=== PATIENT | female | born 1950 | race African-American/Black ===

== ENCOUNTER → 2017-09-10 | Outpatient (CLI) | payer MEDICARE, OTHER ==
--- NOTE | 2017-09-10 10:46 | US ---
EXAMINATION TYPE: US gallbladder DATE OF EXAM: 09/10/2017 COMPARISON: NONE CLINICAL HISTORY: R19.8 CHANGE IN BOWEL MOVEMENTS. RUQ pain EXAM MEASUREMENTS: Liver Length: 10.1 cm Gallbladder Wall: 0.2 cm CBD: 0.3 cm Right Kidney: 10.2 x 3.7 x 5.5 cm Pancreas: visualized portions wnl Liver: wnl Gallbladder: No stones seen Evidence for sonographic Edmondson's sign: Yes CBD: wnl Right Kidney: No hydronephrosis or masses seen IMPRESSION: 1. Normal right upper quadrant abdomen ultrasound
== END | disposition home or self-care (01) ==
LOC: RADUSWWP 09:48
PROVIDERS: ATTEND Family Medicine
DX: R19.8 Other specified symptoms and signs involving the digestive system and abdomen (principal)
CPT/HCPCS: 76705

== ENCOUNTER → 2017-11-18 | Outpatient (CLI) | payer MEDICARE, OTHER ==
--- NOTE | 2017-11-19 11:23 | MM ---
Reason for exam: screening (asymptomatic). Last mammogram was performed 2 years and 5 months ago. History: Patient is postmenopausal. Family history of breast cancer in maternal aunt. Took estrogen for 6 months beginning at age 51. Physical Findings: A clinical breast exam by your physician is recommended on an annual basis and results should be correlated with mammographic findings. MG 3D Screening Mammo W/Cad Bilateral CC and MLO view(s) were taken. Technologist: RT Henri (R)(M) Prior study comparison: June 18, 2015, bilateral MG 3d diag mammo w/cad [facility]. March 29, 2014, bilateral MG diagnostic mammo w CAD [facility]. The breast tissue is heterogeneously dense. This may lower the sensitivity of mammography. There is a low density left upper central mass at middle depth stable back to 2013. No suspicious abnormality. No significant changes when compared with prior studies. ASSESSMENT: Benign, BI-RAD 2 RECOMMENDATION: Routine screening mammogram of both breasts in 1 year.
== END | disposition home or self-care (01) ==
LOC: RADMAMWWP 13:25
PROVIDERS: ATTEND Family Medicine
DX: Z12.31 Encounter for screening mammogram for malignant neoplasm of breast (principal)
CPT/HCPCS: 77063; 77067

== ENCOUNTER → 2019-01-02 | Outpatient (CLI) | payer MEDICARE, OTHER ==
--- NOTE | 2019-01-03 11:34 | MM ---
Reason for exam: screening (asymptomatic). Last mammogram was performed 1 year and 1 month ago. History: Patient is postmenopausal. Family history of breast cancer in maternal aunt. Took estrogen for 6 months beginning at age 51. Physical Findings: A clinical breast exam by your physician is recommended on an annual basis and results should be correlated with mammographic findings. MG 3D Screening Mammo W/Cad Bilateral CC and MLO view(s) were taken. Prior study comparison: November 18, 2017, bilateral MG 3d screening mammo w/cad. June 18, 2015, bilateral MG 3d diag mammo w/cad [facility]. The breast tissue is heterogeneously dense. This may lower the sensitivity of mammography. There is no discrete abnormality. ASSESSMENT: Negative, BI-RAD 1 RECOMMENDATION: Routine screening mammogram of both breasts in 1 year.
== END | disposition home or self-care (01) ==
LOC: RADMAMWWP 08:37
PROVIDERS: ATTEND Family Medicine
DX: Z12.31 Encounter for screening mammogram for malignant neoplasm of breast (principal)
CPT/HCPCS: 77063; 77067

== ENCOUNTER → 2024-01-07 | Outpatient (CLI) | payer MEDICARE, OTHER ==
--- NOTE | 2024-01-07 13:45 | MM ---
Reason for Exam: Additional evaluation requested from abnormal screening. Last mammogram was performed 2 year(s) and 6 month(s) ago. Indicated Problems: Lump or thickening of the left side. Patient History: Menarche at age 17. First Full-Term at age 23. Left ovary removed at age 51. Right ovary removed at age 51. Hysterectomy at age 51. Postmenopausal. Patient has history of breast feeding. Estrogen, from age 51 until age 54. Maternal aunt had breast cancer. Risk Values: Rhina 5 year model risk: 1.3%. NCI Lifetime model risk: 3.6%. Prior Study Comparison: 06/18/2015 Bilateral Diagnostic Mammogram, [facility]. 11/18/2017 Bilateral Screening Mammogram, [facility]. 01/02/2019 Bilateral Screening Mammogram, [facility]. 07/15/2021 Bilateral Screening Mammogram, [facility]. Tissue Density: There are scattered areas of fibroglandular density. Findings: Analyzed By CAD. The pattern is symmetrical. No significant interval change is evident. Vascular calcifications within the left breast. No discrete mammographic abnormality in the left breast to correlate with the reported palpable abnormality. Additional evaluation can be performed with ultrasound. No suspicious groups of microcalcifications, spiculated or lobular masses, architectural distortion or other secondary signs of malignancy are mammographically apparent. Overall Assessment: Incomplete: need additional imaging evaluation, BI-RAD 0 Management: Diagnostic Breast Ultrasound of the left breast. A negative mammogram report should not preclude additional follow up of suspicious palpable abnormalities. Patient should continue monthly self breast exam. A clinical breast exam by your physician is recommended on an annual basis and results should be correlated with mammographic findings. Note on Rhina scores and lifetime risk: 1. A Rhina score greater than 3% is considered moderate risk. If this is the case, consider specialist referral to assess eligibility for a risk reducing agent. 2. If overall lifetime risk for the development of breast cancer is 20% or higher, the patient may qualify for future screening with alternating mammogram and breast MRI. [facility], , 01/07/2024 1:42 PM. Electronically signed and approved by: Héctor Gilmore D.O. Radiologis
--- NOTE | 2024-01-07 14:04 | USB ---
Reason for Exam: Clinical finding. Patient History: Menarche at age 17. First Full-Term at age 23. Left ovary removed at age 51. Right ovary removed at age 51. Hysterectomy at age 51. Postmenopausal. Patient has history of breast feeding. Estrogen, from age 51 until age 54. Maternal aunt had breast cancer. Risk Values: Rhina 5 year model risk: 1.3%. NCI Lifetime model risk: 3.6%. Technique: Method: Targeted. Doppler: Color. Patient Position: Supine. Prior Study Comparison: 06/18/2015 Bilateral Diagnostic Mammogram, [facility]. 11/18/2017 Bilateral Screening Mammogram, [facility]. 01/02/2019 Bilateral Screening Mammogram, [facility]. Findings: The area of palpable concern of the left breast, the axilla of the left breast and the retroareolar of the left breast were scanned. The left axillary region there is a somewhat prominent lymph node measuring 1.8 cm with a somewhat thickened cortex. At the 6:00 position there is a hypoechoic area. This could be a mass within the duct. Ultrasound-guided core biopsy is recommended. At the 9:00 position no discrete solid or cystic areas are evident. Overall Assessment: Suspicious, BI-RAD 4 Management: Ultrasound Core Biopsy of the left breast. A clinical breast exam by your physician is recommended on an annual basis and results should be correlated with mammographic findings. This exam should not preclude additional follow-up of suspicious palpable abnormalities. Results were given to the patient verbally at the time of exam. [facility], , 01/07/2024 1:55 PM. Electronically signed and approved by: Héctor Gilmore D.O. Radiologis
== END | disposition home or self-care (01) ==
LOC: RADMAMWWP 12:41
PROVIDERS: ATTEND Family Medicine
DX: N63.20 Unspecified lump in the left breast, unspecified quadrant
CPT/HCPCS: 77062; 77066

== ENCOUNTER → 2024-01-27 | Day surgery (SDC) | payer MEDICARE, OTHER ==
--- NOTE | 2024-02-03 10:25 | MM ---
Reason for Exam: Post Procedure Mammogram. Last screening mammogram was performed less than 1 month ago. Patient History: Menarche at age 17. First Full-Term at age 23. Left ovary removed at age 51. Right ovary removed at age 51. Hysterectomy at age 51. Postmenopausal. Patient has history of breast feeding. Estrogen, from age 51 until age 54. Maternal aunt had breast cancer. Risk Values: Rhina 5 year model risk: 1.3%. NCI Lifetime model risk: 3.6%. Prior Study Comparison: 01/02/2019 Bilateral Screening Mammogram, [facility]. 07/15/2021 Bilateral Screening Mammogram, [facility]. 01/07/2024 Bilateral MG 3D diag mammo w/cad ELMO, [facility]. Tissue Density: Left: There are scattered areas of fibroglandular density. Pathology Description: Location: 6 o'clock, retroareolar. Marker Left Behind. Needle Type: boomtrain Cores: 3 Gauge: 12 The procedure of ultrasound guided core biopsy was explained to the patient. Benefits, alternatives, and risks were discussed. An informed consent was then obtained. The patient was placed in supine positioning for imaging and for the procedure. The overlying skin was prepped and draped in usual sterile fashion. Lidocaine buffered with bicarbonate was used as anesthetic into the skin and subcutaneous tissue up to area of concern in the left 6:00 breast. A hector was made with surgical scalpel. Under ultrasound guidance, a 12-gauge vacuum assisted biopsy gun device was used to obtain 3 core samples. Following this, a biopsy clip was left in lesion. The patient tolerated the procedure well without any immediate complication. The patient was kept in the radiology department for short stay after the procedure and then discharged home in stable condition. Postprocedure mammogram: The patient was transferred to mammography for physician ordered post procedure mammogram for clip placement verification. Impression: Successful, uncomplicated ultrasound guided core biopsy of area of concern in the left 6:00 breast, full pathology results to follow. [facility], , 01/27/2024 1:47 PM. Pathology Results: Result: Benign, Fibroadenoma. Pathology and radiology were reviewed. Findings are concordant. LEFT BREAST NIPPLE, 6:00, CORE BIOPSY: Benign sclerotic fibroadenoma. Overall Assessment: Benign Assessment: MG diagnostic mammo LT wo CAD. - Left: Benign, BI-RAD 2. Management: Diagnostic Mammogram of the left breast in 6 months. Electronically signed and approved by: Markie Mascorro M.D. Radiologis
== END ==
LOC: RADUSWWP 12:39
PROVIDERS: ATTEND Family Medicine
CPT/HCPCS: 77065; 88305

== ENCOUNTER 2024-02-20 11:03 | Inpatient (IN) | payer MEDICARE, OTHER ==
--- NOTE | 2024-02-20 12:04 | ED ---
General Adult HPI - General Chief complaint: Abdominal Pain Stated complaint: Abd pain Time Seen by Provider: 02/20/24 11:16 Source: patient, RN notes reviewed Mode of arrival: ambulatory Limitations: no limitations - History of Present Illness Initial comments: 73-year-old female with a past medical history of hypertension, colitis presents to the emergency department for evaluation of 5 days of abdominal discomfort. Patient reports that this started after eating some pork. Patient notes that she has not been able to eat because of the pain. She does admit to trying this. She states that she has had 2 bowel movements over the past 5 days which were solid. She admits to changes in her urinary habits. She denies any blood in the stool, fever. Denies diarrhea. She denies prior abdominal surgeries. - Related Data Home Medications Medication Instructions Recorded Confirmed Brimonidine Tartrate [Alphagan P 1 drop BOTH EYES BID 03/20/16 02/20/24 0.2% Ophth Soln] Latanoprost [Xalatan 0.005%] 1 drop BOTH EYES HS 03/20/16 02/20/24 Timolol 0.25% Ophth Soln [Timoptic 1 drop BOTH EYES BID 03/20/16 02/20/24 0.25% Ophth Soln] Pantoprazole [Protonix] 20 mg PO DAILY 01/10/24 02/20/24 amLODIPine [Norvasc] 10 mg PO DAILY 01/10/24 02/20/24 Chlorthalidone [Hygroton] 25 mg PO DAILY 02/20/24 02/20/24 Dorzolamide 2% [Trusopt 2%] 1 drop BOTH EYES BID 02/20/24 02/20/24 Allergies Allergy/AdvReac Type Severity Reaction Status Date / Time No Known Allergies Allergy Verified 02/20/24 15:58 Review of Systems ROS Statement: Those systems with pertinent positive or pertinent negative responses have been documented in the HPI. ROS Other: All systems not noted in ROS Statement are negative. Past Medical History Past Medical History: COPD, GERD/Reflux, Hypertension Additional Past Medical History / Comment(s): glaucoma History of Any Multi-Drug Resistant Organisms: None Reported Past Surgical History: Hysterectomy Past Anesthesia/Blood Transfusion Reactions: No Reported Reaction Past Psychological History: Anxiety Smoking Status: Current every day smoker Past Alcohol Use History: Occasional, Rare Past Drug Use History: Marijuana General Exam Limitations: no limitations General appearance: alert, in no apparent distress Head exam: Present: atraumatic, normocephalic, normal inspection Eye exam: Present: normal appearance, PERRL, EOMI. Absent: scleral icterus, conjunctival injection, periorbital swelling ENT exam: Present: normal exam, mucous membranes moist Respiratory exam: Present: normal lung sounds bilaterally. Absent: respiratory distress, wheezes, rales, rhonchi, stridor Cardiovascular Exam: Present: regular rate, normal rhythm, normal heart sounds. Absent: systolic murmur, diastolic murmur, rubs, gallop, clicks GI/Abdominal exam: Present: distended, tenderness, normal bowel sounds, organomegaly Extremities exam: Present: normal inspection, full ROM, normal capillary refill. Absent: tenderness, pedal edema, joint swelling, calf tenderness Back exam: Present: normal inspection Neurological exam: Present: alert, oriented X3 Psychiatric exam: Present: normal affect, normal mood Skin exam: Present: warm, dry, intact, normal color. Absent: rash Course Vital Signs 02/20/24 02/20/24 02/20/24 11:11 13:00 16:34 Temperature 98.7 F Pulse Rate 111 H 89 84 Respiratory 16 18 18 Rate Blood Pressure 116/65 129/69 136/78 O2 Sat by Pulse 98 98 98 Oximetry Medical Decision Making - Medical Decision Making Was pt. sent in by a medical professional or institution (, PA, [employer], urgent care, hospital, or prison...) When possible be specific @ -No Did you speak to anyone other than the patient for history (EMS, parent, family, police, friend...)? What history was obtained from this source @ -No Did you review nursing and triage notes (agree or disagree)? Why? @ -I reviewed and agree with nursing and triage notes Were old charts reviewed (outside hosp., previous admission, EMS record, old EKG, old radiological studies, urgent care reports/EKG's, prison records)? Report findings @ -No old charts were reviewed Differential Diagnosis (chest pain, altered mental status, abdominal pain women, abdominal pain men, vaginal bleeding, weakness, fever, dyspnea, syncope, headache, dizziness, GI bleed, back pain, seizure, CVA, palpatations, mental health, musculoskeletal)? @ -Differential Abdominal Pain Women: Appendicitis, Cholecystitis, diverticulosis, ischemic bowel, pancreatitis, hepatitis, UTI, gastroenteritis, AAA, incarcerated hernia, bowel obstruction, constipation, inflammatory bowel, hepatitis, peptic ulcer disease, splenic in farction, perforated viscus, vulvitis, ovarian torsion, PID, kidney stone, placenta abruption, this is not meant to be an all-inclusive list EKG interpreted by me (3pts min.). @ -EKG at 1204 shows sinus rhythm rate 89 X-rays interpreted by me (1pt min.). @ -None done CT interpreted by me (1pt min.). @ -CT abdomen pelvis shows mild right hydronephrosis with renal cortical striations, nonobstructing right renal calculus U/S interpreted by me (1pt. min.). @ -None done What testing was considered but not performed or refused? (CT, X-rays, U/S, labs)? Why? @ -None What meds were considered but not given or refused? Why? @ -None Did you discuss the management of the patient with other professionals (professionals i.e. , PA, [employer], lab, RT, psych nurse, social media designer, sales recruitment specialist, teacher, deportation officer, nurse outreach case manager)? Give summary @ -Case discussed with Dr. Penn who is accepting of the admission Was smoking cessation discussed for >3mins.? @ -No Was critical care preformed (if so, how long)? @ -No Were there social determinants of health that impacted care today? How? (Homelessness, low income, unemployed, alcoholism, drug addiction, transportation, low edu. Level, literacy, decrease access to med. care, halfway, rehab)? @ -No Was there de-escalation of care discussed even if they declined (Discuss DNR or withdrawal of care, Hospice)? DNR status @ -No What co-morbidities impacted this encounter? (DM, HTN, Smoking, COPD, CAD, Cancer, CVA, ARF, Chemo, Hep., AIDS, mental health diagnosis, sleep apnea, morbid obesity)? @ -None Was patient admitted / discharged? Hospital course, mention meds given and route, prescriptions, significant lab abnormalities, going to OR and other pertinent info. @ -Admitted. Patient presented to the emergency department for evaluation of abdominal discomfort. Patient underwent laboratory studies significant for leukocytosis with a white blood cell count of18.8 with a left shift. CMP was obtained revealing hyponatremia with a sodium of 127, hypokalemia with potassium 2.5, hypochloremia, magnesium of 2.5; UA was obtained revealing small blood, positive nitrite, small leukocyte esterase. CT abdomen pelvis shows findings concerning for pyelonephritis. Patient received 40 mill equivalents of p.o. potassium and 40 mill equivalents of IV potassium. She also received IV fluids and Rocephin for treatment of pyelonephritis. Patient will be admitted for IV antibiotics and potassium replacement. The case was discussed with her primary care provider, Dr. Penn who is accepting of the admission. Patient stable at time of admission. Case discussed with Dr. Don Undiagnosed new problem with uncertain prognosis? @ -No Drug Therapy requiring intensive monitoring for toxicity (Heparin, Nitro, Insulin, Cardizem)? @ -No Were any procedures done? @ -No Diagnosis/symptom? @ -Pyelonephritis, hypokalemia Acute, or Chronic, or Acute on Chronic? @ -Acute Uncomplicated (without systemic symptoms) or Complicated (systemic symptoms)? @ -Complicated Side effects of treatment? @ -No Exacerbation, Progression, or Severe Exacerbation? @ -No Poses a threat to life or bodily function? How? (Chest pain, [place], [place], pneumonia, PE, COPD, DKA, ARF, appy, cholecystitis, CVA, Diverticulitis, Homicidal, Suicidal, threat to staff... and all critical care pts) @ -Yes hypokalemia - Lab Data Result diagrams: 02/20/24 11:59 02/20/24 19:25 Lab Results 02/20/24 02/20/24 02/20/24 Range/Units 11:50 11:59 11:59 WBC 18.8 H (3.8-10.6) k/uL RBC 4.91 (3.80-5.40) m/uL Hgb 14.4 (11.4-16.0) gm/dL Hct 43.3 (34.0-46.0) % MCV 88.1 (80.0-100.0) fL MCH 29.4 (25.0-35.0) pg MCHC 33.4 (31.0-37.0) g/dL RDW 13.1 (11.5-15.5) % Plt Count 186 (150-450) k/uL MPV 10.6 Neutrophils % 80 % Lymphocytes % 8 % Monocytes % 8 % Eosinophils % 0 % Basophils % 0 % Neutrophils # 14.9 H (1.3-7.7) k/uL Lymphocytes # 1.5 (1.0-4.8) k/uL Monocytes # 1.5 H (0-1.0) k/uL Eosinophils # 0.0 (0-0.7) k/uL Basophils # 0.0 (0-0.2) k/uL Sodium 127 L (137-145) mmol/L Potassium 2.5 L* (3.5-5.1) mmol/L Chloride 87 L (98-107) mmol/L Carbon Dioxide 30 (22-30) mmol/L Anion Gap 10 mmol/L BUN 22 H (7-17) mg/dL Creatinine 0.95 (0.52-1.04) mg/dL Est GFR (CKD-EPI)AfAm 70 (>60 ml/min/1.73 sqM) Est GFR (CKD-EPI)NonAf 61 (>60 ml/min/1.73 sqM) Glucose 200 H (74-99) mg/dL Plasma Lactic Acid Derik (0.7-2.0) mmol/L Calcium 9.7 (8.4-10.2) mg/dL Magnesium 2.5 H (1.6-2.3) mg/dL Total Bilirubin 1.6 H (0.2-1.3) mg/dL AST 24 (14-36) U/L ALT 14 (4-34) U/L Alkaline Phosphatase 143 H (38-126) U/L Total Protein 7.3 (6.3-8.2) g/dL Albumin 4.0 (3.5-5.0) g/dL Amylase 36 (30-110) U/L Lipase 38 (23-300) U/L Urine Color Urine Appearance (Clear) Urine pH (5.0-8.0) Ur Specific [place] (1.001-1.035) Urine Protein (Negative) Urine Glucose (UA) (Negative) Urine Ketones (Negative) Urine Blood (Negative) Urine Nitrite (Negative) Urine Bilirubin (Negative) Urine Urobilinogen (<2.0) mg/dL Ur Leukocyte Esterase (Negative) Urine RBC (0-5) /hpf Urine WBC (0-5) /hpf Ur Squamous Epith Cells (0-4) /hpf Urine Bacteria (None) /hpf Urine Mucus (None) /hpf 02/20/24 02/20/24 Range/Units 11:59 14:58 WBC (3.8-10.6) k/uL RBC (3.80-5.40) m/uL Hgb (11.4-16.0) gm/dL Hct (34.0-46.0) % MCV (80.0-100.0) fL MCH (25.0-35.0) pg MCHC (31.0-37.0) g/dL RDW (11.5-15.5) % Plt Count (150-450) k/uL MPV Neutrophils % % Lymphocytes % % Monocytes % % Eosinophils % % Basophils % % Neutrophils # (1.3-7.7) k/uL Lymphocytes # (1.0-4.8) k/uL Monocytes # (0-1.0) k/uL Eosinophils # (0-0.7) k/uL Basophils # (0-0.2) k/uL Sodium (137-145) mmol/L Potassium (3.5-5.1) mmol/L Chloride (98-107) mmol/L Carbon Dioxide (22-30) mmol/L Anion Gap mmol/L BUN (7-17) mg/dL Creatinine (0.52-1.04) mg/dL Est GFR (CKD-EPI)AfAm (>60 ml/min/1.73 sqM) Est GFR (CKD-EPI)NonAf (>60 ml/min/1.73 sqM) Glucose (74-99) mg/dL Plasma Lactic Acid Derik 1.3 (0.7-2.0) mmol/L Calcium (8.4-10.2) mg/dL Magnesium (1.6-2.3) mg/dL Total Bilirubin (0.2-1.3) mg/dL AST (14-36) U/L ALT (4-34) U/L Alkaline Phosphatase (38-126) U/L Total Protein (6.3-8.2) g/dL Albumin (3.5-5.0) g/dL Amylase (30-110) U/L Lipase (23-300) U/L Urine Color Colorless Urine Appearance Clear (Clear) Urine pH 5.5 (5.0-8.0) Ur Specific [place] 1.026 (1.001-1.035) Urine Protein Trace H (Negative) Urine Glucose (UA) Negative (Negative) Urine Ketones Negative (Negative) Urine Blood Small H (Negative) Urine Nitrite Positive H (Negative) Urine Bilirubin Negative (Negative) Urine Urobilinogen <2.0 (<2.0) mg/dL Ur Leukocyte Esterase Small H (Negative) Urine RBC 4 (0-5) /hpf Urine WBC 21 H (0-5) /hpf Ur Squamous Epith Cells 1 (0-4) /hpf Urine Bacteria Rare H (None) /hpf Urine Mucus Rare H (None) /hpf Disposition Clinical Impression: Pyelonephritis, Hypokalemia Disposition: ADMITTED IP TO THIS HOSP Condition: Stable Is patient prescribed a controlled substance at d/c from ED?: No
[2024-02-20 12:12] LABS: Basophils % (A) 0 %; Eosinophils % (A) 0 %; HCT 43.3 % (34.0-46.0); HGB 14.4 gm/dL (11.4-16.0); Lymphocytes # (A) 1.5 k/uL (1.0-4.8); Lymphocytes % (A) 8 %; MCH 29.4 pg (25.0-35.0); MCHC 33.4 g/dL (31.0-37.0); MCV 88.1 fL (80.0-100.0); Mean Platelet Volume 10.6; Monocytes # (A) 1.5 k/uL (0-1.0); Monocytes % (A) 8 %; Neutrophils # (A) 14.9 k/uL (1.3-7.7); Neutrophils % (A) 80 %; Platelet Count 186 k/uL (150-450); RBC 4.91 m/uL (3.80-5.40); RDW 13.1 % (11.5-15.5); WBC 18.8 k/uL (3.8-10.6)
[2024-02-20 12:23] LABS: ALT 14 U/L (4-34); AST 24 U/L (14-36); African American GFR (CKD) 70 (>60 ml/min/1.73 sqM); Alkaline Phosphatase 143 U/L (38-126); Amylase 36 U/L (30-110); Anion Gap 10 mmol/L; Blood Urea Nitrogen 22 mg/dL (7-17); Calcium 9.7 mg/dL (8.4-10.2); Carbon Dioxide 30 mmol/L (22-30); Chloride 87 mmol/L (98-107); Glucose 200 mg/dL (74-99); Lipase 38 U/L (23-300); Non-African American GFR(CKD) 61 (>60 ml/min/1.73 sqM); Sodium 127 mmol/L (137-145); Total Bilirubin 1.6 mg/dL (0.2-1.3); Total Protein 7.3 g/dL (6.3-8.2)
[2024-02-20 12:36] LABS: Potassium 2.5 mmol/L (3.5-5.1)
[2024-02-20] MEDS ORDERED: Potassium Replacement Protocol 1 EACH MISC MISCELLANE PRN (12:37)
[2024-02-20] MEDS: ONDANSETRON 4 MG/2 ML VIAL IVP STA (12:38)
[2024-02-20] MEDS: SODIUM CHLORIDE 0.9% 1,000 ML IV STA (12:38)
[2024-02-20] MEDS: POTASSIUM CHLORIDE ER 20 MEQ TAB.ER PO STA (13:24)
[2024-02-20] MEDS: POTASSIUM CHLORIDE 10 MEQ in WATER FOR INJECTION 1 100ML.BAG IVPB SCH (13:30)
--- NOTE | 2024-02-20 13:54 | CT ---
EXAMINATION TYPE: CT abdomen pelvis w con DATE OF EXAM: 02/20/2024 1:18 PM COMPARISON: None CLINICAL INDICATION: Female, 73 years old with history of abdominal pain; Abdominal pain TECHNIQUE: Axial CT abdomen pelvis w con;Sagittal and coronal reformats were created on a separate w orkstation. Contrast used:100 ml mL of Isovue 300 with IV Contrast, (none if empty) Oral contrast used: without Oral Contrast (none if empty) CT DLP: 499.3 mGycm, Automated exposure control for dose reduction was used. FINDINGS: LOWER CHEST: Unremarkable ABDOMEN LIVER: Unremarkable GALLBLADDER AND BILE DUCTS: Unremarkable. PANCREAS: Unremarkable. SPLEEN: Unremarkable. ADRENAL GLANDS: Unremarkable. KIDNEYS AND URETERS: Asymmetrically enlarged right kidney with cortical defect series 201 image 31 suggesting prior injury . Few scattered subcentimeter probable renal cysts. Nonobstructing 2 mm calculus in the right. Subtle striations are seen in the right renal cortex which is asymmetric. Evaluation of the ureters is limi rupinder due to patient body habitus. There may be mild dilation of the right collecting system. PELVIS BLADDER: No evidence for wall thickening or mass given limitations of exam. REPRODUCTIVE: The uterus is surgically absent. ABDOMEN & PELVIS STOMACH AND BOWEL: No evidence of bowel obstruction. The appendix is normal. PERITONEUM/RETROPERITONEUM: No evidence of pneumoperitoneum or free fluid. VASCULATURE: Moderate atherosclerotic calcifications are present throughout the abdominal aorta and i ts branches. No evidence of aortic aneurysm. MUSCULOSKELETAL: No acute osseous abnormalities. Moderate disc degeneration changes are present throu ghout the thoracolumbar spine. LYMPH NODES: No gross evidence for lymphadenopathy. SOFT TISSUE/ABDOMINAL WALL: Unremarkable IMPRESSION: 1. Mild right hydronephrosis with renal cortical striations, correlate for right pyelonephritis corre late with urinalysis. No obstructing calculus definitively visualized however evaluation of the urete r is limited. 2. Nonobstructing right renal calculus. [facility], Workstation: [id number], 02/20/2024 1:51 PM
[2024-02-20 15:11] LABS: Appearance,Urine Clear (Clear); Bacteria,Urine Rare /hpf; Bilirubin,Urine Negative (Negative); Blood,Urine Small (Negative); Color,Urine Colorless; Glucose,Urine (UA) Negative (Negative); Ketones,Urine Negative (Negative); Leukocyte Esterase,Urine Small (Negative); Mucus,Urine Rare /hpf; Nitrite,Urine Positive (Negative); PH, Urine 5.5 (5.0-8.0); Protein,Urine Trace (Negative); RBC,Urine 4 /hpf (0-5); Specific Gravity,Urine 1.026 (1.001-1.035); Squamous Epithelial Cell,Urine 1 /hpf (0-4); Urobilinogen,Urine <2.0 mg/dL (<2.0); WBC,Urine 21 /hpf (0-5)
[2024-02-20] MEDS ORDERED: ONDANSETRON 4 MG/2 ML VIAL IVP PRN (15:39)
[2024-02-20] MEDS ORDERED: NALOXONE 0.4 MG/ML 1 ML VIAL IV PRN (15:39)
[2024-02-20] MEDS ORDERED: ACETAMINOPHEN TAB 325 MG TAB PO PRN (15:39)
[2024-02-20] MEDS ORDERED: IBUPROFEN 400 MG TAB PO PRN (15:39)
[2024-02-20] MEDS: SODIUM CHLORIDE 0.9% 1,000 ML IV SCH ×2 (19:06→19:08)
[2024-02-20 20:11] LABS: African American GFR (CKD) 73 (>60 ml/min/1.73 sqM); Anion Gap 4 mmol/L; Blood Urea Nitrogen 17 mg/dL (7-17); Calcium 9.2 mg/dL (8.4-10.2); Carbon Dioxide 31 mmol/L (22-30); Chloride 95 mmol/L (98-107); Glucose 146 mg/dL (74-99); Non-African American GFR(CKD) 63 (>60 ml/min/1.73 sqM); Sodium 130 mmol/L (137-145)
[2024-02-20] MEDS: POTASSIUM CHLORIDE ER 20 MEQ TAB.ER PO SCH (20:47)
[2024-02-21] MEDS: POTASSIUM CHLORIDE ER 20 MEQ TAB.ER PO SCH ×4 (02:09→20:31)
[2024-02-21 12:03] LABS: HCT 39.4 % (34.0-46.0); HGB 12.9 gm/dL (11.4-16.0); MCH 29.6 pg (25.0-35.0); MCHC 32.8 g/dL (31.0-37.0); MCV 90.3 fL (80.0-100.0); Mean Platelet Volume 9.5; Platelet Count 191 k/uL (150-450); RBC 4.36 m/uL (3.80-5.40); RDW 13.5 % (11.5-15.5); WBC 13.4 k/uL (3.8-10.6)
[2024-02-21 12:14] LABS: ALT 13 U/L (4-34); AST 24 U/L (14-36); African American GFR (CKD) >90 (>60 ml/min/1.73 sqM); Albumin 3.5 g/dL (3.5-5.0); Albumin/Globulin Ratio 1.2; Alkaline Phosphatase 113 U/L (38-126); Anion Gap 5 mmol/L; Blood Urea Nitrogen 13 mg/dL (7-17); Calcium 9.5 mg/dL (8.4-10.2); Carbon Dioxide 26 mmol/L (22-30); Chloride 103 mmol/L (98-107); Glucose 117 mg/dL (74-99); Non-African American GFR(CKD) 82 (>60 ml/min/1.73 sqM); Potassium 3.3 mmol/L (3.5-5.1); Sodium 134 mmol/L (137-145); Total Bilirubin 1.1 mg/dL (0.2-1.3); Total Protein 6.5 g/dL (6.3-8.2)
[2024-02-21 12:25] LABS: Basophils # (M) 0.13 k/uL (0-0.2); Eosinophils # (M) 0.13 k/uL (0-0.7); Lymphocytes # (M) 2.68 k/uL (1.0-4.8); Monocytes # (M) 1.47 k/uL (0-1.0); Neutrophils # (M) 8.98 k/uL (1.3-7.7); Neutrophils % (M) 67 %; Nucleated Red Blood Cells 0 /100 WBC (0-0); Total Cells Counted 100
[2024-02-21 12:26] LABS: RBC Morphology Normal
[2024-02-21] MEDS: BRIMONIDINE TARTRATE 0.2% DROPS 5 ML BTL BOTH EYES SCH (19:46)
[2024-02-21] MEDS: TIMOLOL 0.25% OPHTH DROPS 5 ML BTL BOTH EYES SCH (19:47)
[2024-02-21] MEDS: DORZOLAMIDE HCL 2% DROPS 10 ML BTL BOTH EYES SCH (19:47)
[2024-02-21] MEDS: LATANOPROST 0.005% OPHTH DROPS 2.5 ML BTL BOTH EYES SCH (19:47)
--- NOTE | 2024-02-21 20:11 | HP ---
HISTORY AND PHYSICAL CHIEF COMPLAINT: Abdominal pain. HISTORY OF PRESENT ILLNESS: This is another admission for this 73-year-old female. She came to the emergency room with complaints of abdominal pain. In the emergency room, [place] [address]. Her blood sugar was 200. Sodium was low at 127 and potassium was 2.9. She also had elevated alkaline phosphatase. Ultrasound suggested right hydronephrosis and pyelonephritis. REVIEW OF SYSTEMS: She has had chills, but no significant fever. She has had no nausea, or vomiting. Past medical history, family history, personal and social histories are otherwise unremarkable and noncontributory and unchanged. PHYSICAL EXAMINATION: VITAL SIGNS: Normal. HEAD, EARS, EYES, NOSE, MOUTH AND THROAT: Normal. CHEST: Clear. CARDIAC: Normal. ABDOMEN: Soft and slightly tender on the left side. There are no masses or visceromegaly. EXTREMITIES: Normal. NEUROLOGICAL: She is intact. IMPRESSION: She is admitted to the hospital with diagnoses of, 1. Possible right ureteral calculus. 2. Right-sided pyelonephritis. 3. Leukocytosis. 4. Elevated blood sugar. 5. Hyponatremia. 6. Hypokalemia. 7. Elevated alkaline phosphatase. PLAN: 1. Bedrest. 2. IV fluids. 3. IV antibiotics. 4. Urology consult. MMODL / IJN: [id number] /
[2024-02-22] MEDS: PANTOPRAZOLE 40 MG TABLET PO SCH (05:55)
[2024-02-22] MEDS: amLODIPine 10 MG TAB PO SCH (07:37)
--- NOTE | 2024-02-22 07:45 | PN ---
PROGRESS NOTE DATE OF SERVICE: 02/21/2024 CHIEF COMPLAINT: Abdominal pain. HISTORY OF PRESENT ILLNESS: This lady is doing fairly well, but still is complaining of some abdominal pain. PHYSICAL EXAMINATION: CHEST: Clear. CARDIAC: Normal. ABDOMEN: Seems to be soft, nontender without masses. IMPRESSION: 1. Abdominal pain, flank pain, and hypokalemia. 2. Leukocytosis. 3. Electrolyte imbalance. 4. Urinary tract infection. PLAN: 1. Continue to monitor her flank pain. 2. Antibiotics. 3. Possibly refer to Urology. MMODL / IJN: [id number] /
[2024-02-22 12:06] LABS: HCT 36.2 % (34.0-46.0); HGB 11.5 gm/dL (11.4-16.0); Hypochromasia Slight; MCH 29.1 pg (25.0-35.0); MCHC 31.7 g/dL (31.0-37.0); Mean Platelet Volume 9.9; Platelet Count 181 k/uL (150-450); RBC 3.94 m/uL (3.80-5.40); RDW 13.7 % (11.5-15.5); WBC 11.7 k/uL (3.8-10.6)
[2024-02-22 12:17] LABS: ALT 16 U/L (4-34); AST 25 U/L (14-36); African American GFR (CKD) >90 (>60 ml/min/1.73 sqM); Albumin 3.1 g/dL (3.5-5.0); Albumin/Globulin Ratio 1.1; Alkaline Phosphatase 85 U/L (38-126); Anion Gap 6 mmol/L; Blood Urea Nitrogen 9 mg/dL (7-17); Calcium 9.6 mg/dL (8.4-10.2); Carbon Dioxide 23 mmol/L (22-30); Chloride 107 mmol/L (98-107); Globulin 2.8 g/dL; Glucose 104 mg/dL (74-99); Non-African American GFR(CKD) >90 (>60 ml/min/1.73 sqM); Potassium 4.2 mmol/L (3.5-5.1); Sodium 136 mmol/L (137-145); Total Bilirubin 0.5 mg/dL (0.2-1.3); Total Protein 5.9 g/dL (6.3-8.2)
[2024-02-22 13:18] LABS: Eosinophils # (M) 0.47 k/uL (0-0.7); Monocytes # (M) 1.29 k/uL (0-1.0); Neutrophils # (M) 5.15 k/uL (1.3-7.7); Neutrophils % (M) 44 %; Nucleated Red Blood Cells 0 /100 WBC (0-0); Total Cells Counted 100
--- NOTE | 2024-02-22 14:48 | US ---
EXAMINATION TYPE: US abdomen complete DATE OF EXAM: 02/22/2024 Exam done portable COMPARISON: CT 2023, US 2017 CLINICAL INDICATION: Female, 73 years old with history of abd pain; TECHNIQUE: Grayscale and color Doppler imaging of the abdomen was performed. FINDINGS: EXAM MEASUREMENTS: Liver Length: 16.0 cm Gallbladder Wall: 0.2 cm CBD: 0.2 cm Spleen: 9.5 cm Right Kidney: 12.1 x 5.5 x 5.5 cm Left Kidney: 11.9 x 5.5 x 4.7 cm Pancreas: Obscured by bowel gas Liver: wnl Gallbladder: wnl Evidence for sonographic Edmondson's sign: no CBD: wnl Spleen: wnl Right Kidney: fullness of renal pelvis Left Kidney: wnl Upper IVC: wnl Abd Aorta: wnl IMPRESSION: 1. Mild fullness suggestive of mild right hydronephrosis. No nephrolithiasis. [facility] Shan Jean, , 02/22/2024 2:46 PM
--- NOTE | 2024-02-22 20:06 | PN ---
PROGRESS NOTE DATE OF SERVICE: 02/22/2024 CHIEF COMPLAINT: Abdominal pain, pyelonephritis, and possible ureteral obstruction. REVIEW OF SYSTEMS: She states she is feeling better and she is not having any pain. She has had no nausea or vomiting. PHYSICAL EXAMINATION: CHEST: Clear. CARDIAC: Normal. ABDOMEN: Seems soft and nontender. Bowel sounds are present. IMPRESSION: 1. Abdominal pain. 2. ? pyelonephritis. 3. ? ureteral obstruction. PLAN: 1. Repeat laboratory studies. 2. Ultrasound of the abdomen. MMODL / IJN: [id number] /
[2024-02-23 07:27] VITALS: BP 120/57; PULSE 76; RESP 16; TEMP 98.5
[2024-02-23] MEDS ORDERED: CEPHALEXIN 500 MG CAP PO SCH (18:00)
--- NOTE | 2024-02-27 07:44 | DS ---
DISCHARGE SUMMARY CHIEF COMPLAINT: Abdominal pain, pyelonephritis, and hypokalemia. HISTORY OF PRESENT ILLNESS AND PHYSICAL EXAMINATION: Details of this lady's history and physical can be found in the initial workup. LABORATORY STUDIES: While she is in the hospital, she had laboratory studies, details of which can be found in the laboratory section of her chart. COURSE IN THE HOSPITAL: After admission, she was placed on bedrest, started on intravenous fluids, and started on workup for possible right ureteral obstruction and hydronephrosis with pyelonephritis. It was turned out she did not have an obstruction. She was treated with IV fluids and antibiotics. She was doing well and was totally asymptomatic and had corrected potassium. It was felt that she could go home on the and she will follow up in the office. FINAL DIAGNOSES: 1. Right-sided pyelonephritis. 2. Right-sided hydronephrosis. 3. Hypokalemia. OPERATIONS: None. CONSULTATIONS: None. She is improved. MMREBECA / TONJAN: [id number] /
== END 2024-02-23 13:47 | disposition home or self-care (01) | DRG 690 ==
LOC: EC 11:03 → 6NMEDSUR 16:04
PROVIDERS: ADMIT Family Medicine; ATTEND Family Medicine
DX: N13.6 Pyonephrosis (principal); E87.1 Hypo-osmolality and hyponatremia; E87.6 Hypokalemia; I10 Essential (primary) hypertension; J44.9 Chronic obstructive pulmonary disease, unspecified; F17.200 Nicotine dependence, unspecified, uncomplicated; K21.9 Gastro-esophageal reflux disease without esophagitis; R73.9 Hyperglycemia, unspecified; R74.8 Abnormal levels of other serum enzymes; Z90.710 Acquired absence of both cervix and uterus; Z79.899 Other long term (current) drug therapy
CPT/HCPCS: 36415; 74177; 76700; 80048; 80053; 81001; 82150; 83605; 83690; 83735; 84132; 85025; 87040; 93005; 96361; 96365; 96366; 96368; 96375; 99285